=== PATIENT | male | born 1990 | race African-American/Black ===

== ENCOUNTER 2017-04-23 22:02 | Emergency (ER) | payer SELFPAY ==
[~2017-04-23] VITALS: Ht 193 cm; Wt 87.1 kg
[2017-04-23 22:11] VITALS: BP 125/82
[2017-04-23] MEDS ORDERED: ESTRADIOL0.5 MG PO (22:12)
[2017-04-23] MEDS ORDERED: Mylanta II UD 30ml ORAL ONE (22:15)
[2017-04-23] MEDS ORDERED: Metoclopramide 10mg/2ml Inj IM SCH (22:15)
[2017-04-23] MEDS ORDERED: REGLAN10 M1 ORAL (23:06)
[2017-04-23] MEDS ORDERED: PEPCID40 MG PO (23:06)
[2017-04-23 23:30] VITALS: BP 121/79
--- NOTE | 2017-04-23 23:47 | Emergency Room Report ---
History of Present Illness General Chief Complaint: Nausea, Vomiting, and Diarrhea Source: Patient Present Illness HPI 26YOM with four-days Of nausea, and diarrhea No actual abdominal plain now No previous abdominal surgery, no urinary complaints Started after eating chicken from outside a restaurant Sick contacts at home Recent alcohol binge, partner states daily heavy drinking Allergies: Coded Allergies: No Known Allergies (Unverified , 04/23/17) Patient History Past Medical History: none Past Surgical History: none Pertinent Family History: none Social History: Reports: alcohol use Immunizations: UTD Reviewed Nursing Documentation: PMH: Agreed, PSxH: Agreed Nursing Documentation-PMH Past Medical History: No Stated History Review of Systems All Other Systems: negative except mentioned in HPI Physical Exam Vital Signs Date Time Temp Pulse Resp B/P (MAP) Pulse Ox O2 Delivery O2 Flow Rate FiO2 04/23/17 22:07 119 14 125/82 98 Room Air 04/23/17 22:11 98.1 Sp02 EP Interpretation: reviewed, normal General Appearance: normal inspection, well appearing, no apparent distress, alert, GCS 15, non-toxic Head: normocephalic, atraumatic Eyes: bilateral eye PERRL, bilateral eye EOMI ENT: normal ENT inspection, hearing grossly normal, normal pharynx, no angioedema, normal voice, TMs + canals normal, uvula midline, moist mucus membranes Neck: normal inspection, full range of motion, supple, thyroid normal, no meningismus, no bony tend Respiratory: normal inspection, lungs clear, normal breath sounds, no rhonchi, no respiratory distress, no retraction, no accessory muscle use, no wheezing, speaking full sentences Cardiovascular #1: regular rate, rhythm, no edema, no JVD, normal capillary refill Gastrointestinal: normal inspection, normal bowel sounds, non tender, soft, no mass, no peritonitis, non-distended, no guarding, no hernia, no pulsatile mass Genitourinary: no CVA tenderness Musculoskeletal: normal inspection, back normal, normal range of motion, no calf tenderness, pelvis stable, Hugh's Sign negative Neurologic: normal inspection, alert, oriented x3, responsive, legal adviser III-XII nml as tested, motor strength/tone normal, cerebellar normal, normal gait, speech normal Psychiatric: normal inspection, judgement/insight normal, mood/affect normal, no suicidal/homicidal ideation, no delusions Skin: normal inspection, normal color, no rash Lymphatic: normal inspection, no adenopathy Medical Decision Making Diagnostic Impression: Primary Impression: Nausea, vomiting, and diarrhea ER Course Vital signs stable, afebrile no Focal abdominal tenderness on serial exam Low suspicion for acute bacterial or surgical process imProved with GI cocktail Viral gastroenteritis versus acute gastritis from alcohol abuse ER course: Patient has remained stable during ED stay. Patient is to be discharged to home. Prescriptions given are pepcid, reglan Patient is instructed to follow up with their primary care doctor within 5 days. Strict return precautions discussed with patient such as fever, chills, worsening/severe pain, nausea, vomiting, which may indicate severe illness. Patient verbalizes understanding and agrees with plan. Please note that this Emergency Department Report was dictated using [employer] development [employer] technology software, occasionally this can lead to erroneous entry secondary to interpretation by the dictation equipment Last Vital Signs Date Time Temp Pulse Resp B/P (MAP) Pulse Ox O2 Delivery O2 Flow Rate FiO2 04/23/17 22:11 98.1 111 14 125/82 98 Room Air Status: improved Disposition: HOME, SELF-CARE Condition: Improved Scripts Metoclopramide Hcl* (REGLAN*) 10 Mg Tablet 10 MG ORAL THREE TIMES A DAY for 7 Days, #30 TAB Prov: EWA HANSON M.D. 04/23/17 Famotidine (PEPCID) 40 Mg Tablet 40 MG PO DAILY for 7 Days, #14 TAB 0 Refills Prov: EWA HANSON M.D. 04/23/17 Referrals: NOT [facility]OSEN [facility]/,REFERRING (PCP) Patient Instructions: Viral Gastroenteritis, Adult, [id number] Additional Instructions: - STOP Heavy drinking - Take pepcid each morning for next 7-14 days until better - Take reglan as needed for nausea/vomiting EWA HANSON M.D. Apr 23, 2017 23:47
== END 2017-04-23 23:30 | disposition home or self-care (01) ==
LOC: EMR 22:24
DX: R11.2 Nausea with vomiting, unspecified (principal); R19.7 Diarrhea, unspecified
CPT/HCPCS: 80307; 96372; 99284; J2765

== ENCOUNTER 2017-10-25 20:42 | Emergency (ER) | payer MEDICAID ==
[~2017-10-25] VITALS: Ht 190.5 cm; Wt 85.7 kg
[~2017-10-25 20:42] MED LIST: ESTRADIOL0.5 MG PO; PEPCID40 MG PO; REGLAN10 M1 ORAL
[2017-10-25 21:05] VITALS: BP 138/79
[2017-10-25] MEDS ORDERED: Lidocaine 1% Plain 30 ml INJ ONE (21:15)
[2017-10-25] MEDS ORDERED: Norco 5mg/325mg tab ORAL ONE (21:15)
[2017-10-25] MEDS ORDERED: LET 3ml Soln TOPIC ONE (21:15)
[2017-10-25] MEDS ORDERED: Bactrim-DS 1 tab ORAL ONE (21:15)
[2017-10-25] MEDS ORDERED: Bacitracin Oint UD TOPIC ONE (21:15)
--- NOTE | 2017-10-25 22:02 | Emergency Room Report ---
History of Present Illness General Chief Complaint: Skin Rash/Abscess Source: Patient Present Illness HPI The patient presents with infection in the skin of her face on the left-hand side. It's been there for 3 days. Is painful. She denies any fevers or chills. Pain is rated at 10/10, burning, pressure and aching, not radiating. There has been some drainage from the area. This is in an area where she has been shaving. Tetanus is up to date. The patient has registered as a male however dressed as a female. The patient denies any medical problems. No chest pain, palpitations, nausea, vomiting, diarrhea, dysuria, abdominal pain , shortness of breath, depression, visual changes, headache. Allergies: Coded Allergies: No Known Allergies (Unverified , 04/23/17) Patient History Past Medical History: see triage record Social History: Reports: smoking Social History Narrative from home Reviewed Nursing Documentation: PMH: Agreed; PSxH: Agreed Nursing Documentation-PMH Past Medical History: No Stated History Review of Systems All Other Systems: negative except mentioned in HPI Physical Exam Vital Signs Date Time Temp Pulse Resp B/P (MAP) Pulse Ox O2 Delivery O2 Flow Rate FiO2 10/25/17 20:43 98.2 100 14 138/79 97 Room Air 98.2 Sp02 EP Interpretation: reviewed, normal General Appearance: well appearing, no apparent distress Head: normocephalic, atraumatic Eyes: bilateral eye normal inspection, bilateral eye PERRL ENT: hearing grossly normal, normal voice, moist mucus membranes Neck: full range of motion, supple Respiratory: no respiratory distress, speaking full sentences Cardiovascular #2: 2+ radial (L) Gastrointestinal: normal inspection Musculoskeletal: digits/nails normal, gait/station normal, normal range of motion Neurologic: alert, normal gait, grossly normal Psychiatric: mood/affect normal Skin: no rash, other - abscess L face lateral to mouth area Procedures Incision and Drainage Incision and Drainage : Consent: Verbal Blade Size: 11 I & D Procedure: betadine prep, sterile drapes applied, sterile dressing applied, gauze wick placed Wound Location: face Wound Explored: contaminated Irrigated w/ Saline (ccs): 20 Anesthesia: 1% Lidocaine Volume Anesthetic (ccs): 1 - 0.5 ml Patient Tolerated: Well Complications: None Progress After prep and drape, incised and pus obtained. Irrigated and the packed with gauze. Tolerated well. Medical Decision Making Diagnostic Impression: Primary Impression: Facial abscess ER Course Patient presents with pain in the face. Differential includes cellulitis, abscess, folliculitis. By the appearance of the lesion this has some central fluctuance needs to be incised and drained. Also patient will be given analgesia and also started on antibiotics. See procedure note. Patient tolerated the procedure well. The patient is stable for outpatient observation and treatment and advised to return to have the drain removed in 24 hours. Last Vital Signs Date Time Temp Pulse Resp B/P (MAP) Pulse Ox O2 Delivery O2 Flow Rate FiO2 10/25/17 22:13 98.2 10/25/17 22:12 78 14 138/79 97 Room Air Status: improved Disposition: HOME, SELF-CARE Condition: Improved Scripts Bacitracin (Bacitracin) 28.4 Gm Oint...g. 1 APPLIC TOPIC BID, #20 GM Prov: Eder Mcmullen M.D. 10/25/17 Ibuprofen* (MOTRIN*) 600 Mg Tablet 600 MG ORAL Q6H PRN for For Pain, #20 TAB Prov: Eder Mcmullen M.D. 10/25/17 Trimethoprim/Sulfamethoxazole 160/800* (BACTRIM DS TABLET*) 1 Each Tablet 1 TAB ORAL Q12H, #14 TAB 0 Refills Prov: Eder Mcmullen M.D. 10/25/17 Referrals: [facility]ERR[facility] (PCP) Eder Mcmullen M.D. Oct 25, 2017 22:02
[2017-10-25] MEDS ORDERED: BACITRACIN15 GM TOPIC (22:05)
[2017-10-25] MEDS ORDERED: BACTRIM DS TAB1 EAC1 ORAL (22:05)
[2017-10-25] MEDS ORDERED: IBUPROFEN600 MG ORAL (22:05)
[2017-10-25 22:12] VITALS: BP_SYST 138; BP_SYST 187; BP_DIAS 79; BP_DIAS 82
== END 2017-10-25 22:15 | disposition home or self-care (01) ==
LOC: EMR 21:30
DX: L02.01 Cutaneous abscess of face (principal)
CPT/HCPCS: 10060; 99284; J2001

== ENCOUNTER 2017-12-29 11:43 | Emergency (ER) | payer MEDICAID ==
[~2017-12-29] VITALS: Ht 193 cm; Wt 87.1 kg
[~2017-12-29 11:43] MED LIST changes: +BACITRACIN15 GM TOPIC; +BACTRIM DS TAB1 EAC1 ORAL; +IBUPROFEN600 MG ORAL
[2017-12-29 11:52] VITALS: BP 142/78
[2017-12-29] MEDS ORDERED: Azithromycin 250mg tab ORAL ONE (12:30)
[2017-12-29] MEDS ORDERED: Lidocaine 1% MPF 10mg/ml 5ml INJ ONE (12:30)
[2017-12-29 12:45] VITALS: BP 142/78
--- NOTE | 2017-12-29 13:21 | Emergency Room Report ---
History of Present Illness General Chief Complaint: General Complaint Source: Patient Present Illness HPI This patient is accompanied by his male partner. He states that he and his partner both had anal intercourse with the same other male. They both developed purulent discharge and are concerned about a sexually transmitted disease. There is no pain. There is no fever or chills. There are no other complaints. Allergies: Coded Allergies: No Known Allergies (Unverified , 04/23/17) Patient History Past Medical History: none, see triage record Social History: Reports: drug use Reviewed Nursing Documentation: PMH: Agreed; PSxH: Agreed Nursing Documentation-PMH Past Medical History: No Stated History Review of Systems All Other Systems: negative except mentioned in HPI Physical Exam Vital Signs Date Time Temp Pulse Resp B/P (MAP) Pulse Ox O2 Delivery O2 Flow Rate FiO2 12/29/17 11:52 97.9 101 18 142/78 100 Room Air 97.9 Sp02 EP Interpretation: reviewed, normal General Appearance: no apparent distress, alert, GCS 15, non-toxic Head: normocephalic, atraumatic Eyes: bilateral eye normal inspection, bilateral eye PERRL ENT: hearing grossly normal, normal pharynx, no angioedema, normal voice Neck: full range of motion, supple/symm/no masses Respiratory: no respiratory distress, no retraction, no accessory muscle use, speaking full sentences Gastrointestinal: normal inspection Rectal: normal exam, normal rectal tone, deferred Musculoskeletal: back normal, gait/station normal, normal range of motion, non- tender Neurologic: alert, oriented x3, responsive, motor strength/tone normal, sensory intact, speech normal Psychiatric: judgement/insight normal, memory normal, mood/affect normal, no suicidal/homicidal ideation Skin: normal color, no rash, warm/dry, well hydrated Medical Decision Making Diagnostic Impression: Primary Impression: STD (male) ER Course The patient is requesting STD treatment. He reports purulent discharge from his rectum/anus. He has rectal intercourse with other males. He is otherwise nontoxic with a normal examination. He was treated presumptively with Rocephin and azithromycin. He is instructed to follow-up with his primary care physician. The patient eloped. Last Vital Signs Date Time Temp Pulse Resp B/P (MAP) Pulse Ox O2 Delivery O2 Flow Rate FiO2 12/29/17 12:45 97.9 101 18 142/78 100 Room Air 97.9 Disposition: ELOPED Condition: Stable Referrals: [facility],REFERR[facility] (PCP) Prachi Wright DO Dec 29, 2017 13:21
== END 2017-12-29 12:45 | disposition left against medical advice (07) ==
LOC: EMR 12:09
DX: A64 Unspecified sexually transmitted disease (principal)
CPT/HCPCS: 96372; 99283; J0696

== ENCOUNTER 2019-10-13 07:29 | Emergency (ER) | payer MEDICAID ==
--- NOTE | 2019-10-13 07:49 | NUR ---
ED Nurse Note: Patient not found in waiting room.
--- NOTE | 2019-10-13 08:07 | NUR ---
ED Nurse Note: Patient called. Patient not found in waiting room.
--- NOTE | 2019-10-13 10:19 | Emergency Room Report ---
History of Present Illness General Chief Complaint: To Be Triaged Present Illness HPI Patient left prior to triage and was not seen by me Allergies: Coded Allergies: No Known Allergies (Unverified , 04/23/17) Medical Decision Making Disposition: LEFT W/OUT BEING SEEN Referrals: [facility] [place],REFERRING (PCP) Eric Dykes M.D. Oct 13, 2019 10:19
== END 2019-10-13 08:07 | disposition left against medical advice (07) ==
LOC: EMR 08:07
DX: Z53.21 Procedure and treatment not carried out due to patient leaving prior to being seen by health care provider (principal)